=== PATIENT | male | born 1945 | race Caucasian/White ===

== ENCOUNTER 2017-11-14 02:07 | Emergency (ER) | payer BC, MEDICARE ==
[~2017-11-14] VITALS: Ht 177.8 cm; Wt 83.5 kg
[~2017-11-14 02:07] MED LIST: ASPI81TA82 PO; FISH100020 PO; LISI-363 PO; METO50TA11 PO; SIMV80TA OR; SLO NIACIN 500 MG PO
[2017-11-14 02:13] VITALS: BP 149/66; PULSE 66; RESP 12; TEMP 97.7; O2SAT 98
[2017-11-14] MEDS ORDERED: CARV6.252 PO (02:40)
[2017-11-14] MEDS ORDERED: AMLO5TAB2 PO (02:40)
[2017-11-14] MEDS ORDERED: FINA5TAB2 PO (02:40)
[2017-11-14] MEDS ORDERED: ASPI81CH6 CHEW (02:40)
[2017-11-14] MEDS ORDERED: ATOR40TA16 PO (02:40)
[2017-11-14 03:20] VITALS: BP 154/74; PULSE 62; RESP 14; O2SAT 99
[2017-11-14] MEDS ORDERED: IBUPROFEN 800 MG TAB PO ONE (03:30)
--- NOTE | 2017-11-14 03:31 | PD ---
HPI Chief Complaint: Injury Time Seen by Provider: 02:36 Travel History International Travel<30 days: No Contact w/Intl Traveler<30days: No Traveled to known affect area: No History of Present Illness HPI 72-year-old male presents to the emergency department by private transportation for complaint of severe anterior right knee pain. Patient states a few nights ago while he was walking to his bedroom in the dark he contused his right knee against the bed frame. Patient had immediate pain that seemed to dissipate and then started noticing increasing pain with some swelling. Patient's had no redness or fever and no increased warmth to the site but area is very painful on range of motion. Patient states he has intolerable pain with attempted knee flexion and refuses to attempt to flex his knee. Patient states he is use an [id number] knee braces without symptomatic relief. Patient used ibuprofen without symptomatic relief. Due to persistent pain presents now for further evaluation. Patient also has bilateral ankle swelling and is been the process of being worked up extensively with his primary care provider and [employer] member for possible kidney concerns but otherwise is doing well. PFSH Past Medical History Narrative Medical CAD stent hypertension tonsillectomy alcohol use; nursing notes Asthma: No Autoimmune Disease: No Blood Disorders: No Anxiety: No Depression: No Heart Rhythm Problems: No Cancer: No Cardiac Catheterization: Yes Cardiovascular Problems: Yes (STENT 2004) High Cholesterol: Yes Chemotherapy: No Chest Pain: Yes Congestive Heart Failure: No COPD: No Cerebrovascular Accident: No Coronary Artery Disease: Yes Diminished Hearing: No Endocrine: No Genitourinary: Yes (DIFFICULTY URINATING) Headaches: No Hypertension: Yes Musculoskeletal: No Neurologic: No Psychiatric: No Respiratory: No Myocardial Infarction: No Radiation Therapy: No Seizures: No Sickle Cell Disease: No Sleep Apnea: No Tetanus Vaccination: > 5 Years Influenza Vaccination: No Past Surgical History AICD: No Cardiac Surgery: Yes (STENT) Coronary Stent: Yes Pacemaker: No Tonsillectomy: Yes Other Surgery: Yes (STENT 2004, TRIGGER FINGER BILAT) Social History Alcohol Use: Yes (RARE) Tobacco Use: No Substance Use: No Allergies-Medications (Allergen,Severity, Reaction): Coded Allergies: No Known Allergies (Verified , 01/23/13) Reported Meds & Prescriptions Reported Meds & Active Scripts Active Percocet (Oxycodone-Acetaminophen) 5-325 mg Tab 1 Tab PO Q6H PRN Reported Aspirin Low Dose (Aspirin) 81 Mg Chew 81 Mg CHEW BID Finasteride 5 Mg Tab 5 Mg PO DAILY Do not crush. Carvedilol 6.25 Mg Tab 6.25 Mg PO BID Amlodipine (Amlodipine Besylate) 5 Mg Tab 5 Mg PO BID Atorvastatin (Atorvastatin Calcium) 40 Mg Tab 40 Mg PO HS Review of Systems Except as stated in HPI: all other systems reviewed are Neg Physical Exam Narrative GENERAL: Well-developed well-nourished male in no acute distress or respiratory distress SKIN: Warm and dry. MUSCULOSKELETAL: No cyanosis, or edema. Attention right lower extremity no redness no increased warmth mild soft tissue swelling no ballotable effusion dorsalis pedis pulse 2+ to palpation capillary refill brisk and less than 2 seconds posterior tibialis pulses 2+ to palpation attempted knee flexion patient refuses due to report of severe pain Data Data Last Documented VS Vital Signs Date Time Temp Pulse Resp B/P (MAP) Pulse Ox O2 Delivery O2 Flow Rate FiO2 11/14/17 02:30 66 16 11/14/17 02:13 97.7 149/66 (93) 98 Orders Orders Knee, Complete (4vws) (11/14/17 ) Splint Or Brace Apply/Monitor (11/14/17 03:25) Ibuprofen (Motrin) (11/14/17 03:30) Immobilizer Knee 20 Inch (11/14/17 ) MDM Medical Decision Making Medical Screen Exam Complete: Yes Emergency Medical Condition: Yes Medical Record Reviewed: Yes Interpretation(s) right knee XR: Osteophytes; no displaced fracture identified Differential Diagnosis Contusion sprain strain fracture tendinitis Narrative Course X-ray of the right knee performed Imaging shows osteophytic changes no obvious patellar displacement or fracture Knee immobilizer applied and patient administered one-time dose of weight-based ibuprofen and provided prescription for Percocet with recommendation for close follow-up with orthopedic surgeon Diagnosis Primary Impression: Patellar tendinitis Qualified Codes: M76.51 - Patellar tendinitis, right knee Referrals: Orthopedist call for appointment [facility] Orthopedist: Dr Jourdan Thakkar Patient Instructions: General Instructions Additional Instructions: Wear immobilizer take pain medication as prescribed ---use with caution and only as needed as narcotic pain medication may impair judgment, delay reaction time, increased risk for fall, and cause constipation. Do not take this medication and drive, swim, climb ladder, or drink alcoholic beverages Follow-up with orthopedist, Dr Orellana or sanitation director Dr Thakkar Return to the emergency department for any concerns or change in condition Med/Other Pt SpecificInfo: Prescription(s) given Scripts Oxycodone-Acetaminophen (Percocet) 5-325 mg Tab 1 TAB PO Q6H Y for PAIN, #8 TAB 0 Refills Prov: Shauna Estevez MD 11/14/17 Disposition: 01 DISCHARGE HOME Condition: Stable Shauna Estevez MD Nov 14, 2017 03:31
[2017-11-14] MEDS ORDERED: PERC5TAB12 PO (03:36)
--- NOTE | 2017-11-14 04:00 | RADRPT ---
EXAM DATE/TIME: 11/14/2017 03:04 [facility] COMPARISON: No previous studies available for comparison. INDICATIONS : Right knee pain for 24 hours post fall MEDICAL HISTORY : None. SURGICAL HISTORY : None. ENCOUNTER: Initial ACUITY: 1 day PAIN SCORE: 10/10 LOCATION: Right anterior surface of knee superior to patella FINDINGS: The osseous structures are in normal alignment. Medial lateral joint space width is maintained. The re is a small size suprapatellar spur. The suprapatellar soft tissues are normal in thickness. Smal l ossific density in the soft tissues of the posterior medial proximal calf. No fractures seen. CONCLUSION: No evidence of fracture or dislocation. Brian Peña MD on November 14, 2017 at 3:58 Board Certified Radiologist. This report was verified electronically.
== END 2017-11-14 03:53 | disposition home or self-care (01) ==
LOC: PHED 02:07
DX: M76.51 Patellar tendinitis, right knee (principal); E78.00 Pure hypercholesterolemia, unspecified; I10 Essential (primary) hypertension
CPT/HCPCS: 73564; 99283; L1830